=== PATIENT | female | born 1975 | race Caucasian/White ===

== ENCOUNTER → 2023-09-29 17:06 | Outpatient (REF) | payer OTHER, SELFPAY | LOC: PAVMRI 17:06 | PROVIDERS: ATTENDING PHYSICIAN Neurological Surgery; FAMILY PHYSICIAN Student in an Organized Health Care Education/Training Program | DX: Z98.1 Arthrodesis status (principal); M54.50 Low back pain, unspecified | CPT/HCPCS: 72148 ==

== ENCOUNTER 2024-10-27 18:17 | Emergency (ER) | payer OTHER, SELFPAY ==
[2024-10-27 18:30] VITALS: BP 129/92
[2024-10-27 18:56] LABS: Hematocrit 39.3 % (37.0-47.0); Hemoglobin 13.3 g/dL (12.0-16.0); Mean Corp Hgb Conc. 33.8 g/dL (33.0-37.0); Mean Corpuscular Volume 87.3 fL (81.0-99.0); Nucleated Red Blood Cells % 0 %; Platelet Count 298 10^3/uL (130-400); Red Cell Dist. Width 13.1 % (11.5-14.5)
[2024-10-27 19:10] LABS: ALT (SGPT) 16 U/L (0-35); AST (SGOT) 24 U/L (14-36); Albumin 4.7 g/dl (3.5-5.0); Alkaline Phosphatase 43 U/L (38-126); Blood Urea Nitrogen 11 mg/dl (7-17); Calcium 9.9 mg/dl (8.4-10.2); Carbon Dioxide 21 mmol/L (22-30); Chloride 109 mmol/L (98-107); Glucose 101 mg/dl (70-99); Potassium 4.0 mmol/L (3.5-5.1); Sodium 137 mmol/L (135-145); Total Protein 7.0 g/dl (6.3-8.2); eGFR > 60.00
--- NOTE | 2024-10-27 21:10 | ED.GENMED ---
History of Present Illness
<Patricia Rasmussen MD, Resident - Last Filed: 10/29/24 04:25>
General
Chief Complaint: Bowel Problem
Source: patient
Time Seen by Provider: 10/27/24 20:33
Nursing documentation reviewed up to this point in time: agreed with
History of Present Illness
History of Present Illness:
Ms. Paty Cummins is a 49-year-old female with a PMH notable for starting Wegovy on September 20, 2024 who presents with rectal pain/pressure increasing after 8 days of not having a bowel movement and daily nausea for 2 weeks.
She feels the urge to have a bowel movement but cannot and feels that there is something blocking. She trains on the toilet, which is led to sweating. She tried an enema at 4 AM today, which was unsuccessful.
She denies bright red blood per rectum. She denies vomiting. She does not eat anything today. She denies having other side effects after starting Wegovy.
Review of Systems
<Patricia Rasmussen MD, Resident - Last Filed: 10/29/24 04:25>
Review of Systems
All Other Systems: ROS reviewed and negative except as documented in HPI and ROS
Phy Exam
<Patricia Rasmussen MD, Resident - Last Filed: 10/29/24 04:25>
Physical Exam
Physical Exam:
General: Standing up because sitting is uncomfortable, dry mucous membranes
Abdomen:
On rectal exam, hard stool can be barely palpated at the tip of the finger
Discomfort to suprapubic pressure
Tenderness to palpation in the lower abdominal quadrants
Heart: Normal rate and rhythm, no pedal edema
Lungs: Clear to auscultation bilaterally
Course
<Patricia Rasmussen MD, Resident - Last Filed: 10/29/24 04:25>
Orders/Labs/Results
Orders:
Orders
10/27/24 18:43
Obstruct Series W/PA Chest [CR Obstruct Series W/pa Chest] Urgent
Comment:
Reason For Exam: no BM x8 days
10/27/24 18:49
Complete Blood Count/With Diff Urgent
Comprehensive Metabolic Panel Urgent
10/27/24 22:31
Enema- Treatment ONCE
Type: Milk of Molasses
Abnormal Lab Results
10/27/24
18:49
WBC 13.3 H 10^3/uL
(4.8-10.8)
MPV 11.2 H fL
(7.4-10.4)
Abs Immat Gran (auto) 0.1 H 10^3/uL
(0-0.05)
Absolute Neuts (auto) 10.8 H 10^3/uL
(1.4-6.5)
Neutrophils % 81.3 H %
(42.2-75.2)
Lymphocytes % 13.2 L %
(20.5-51.1)
Chloride 109 H mmol/L
(98-107)
Carbon Dioxide 21 L mmol/L
(22-30)
Glucose 101 H mg/dl
(70-99)
10/27/24 18:49
10/27/24 18:49
Vital Signs
Initial and Last Documented VS:
Initial Vital Signs
Pulse Resp BP Pulse Ox
87 18 129/92 98
10/27/24 18:30 10/27/24 18:30 10/27/24 18:30 10/27/24 18:30
Last Documented Vital Signs
Temp Pulse Resp BP Pulse Ox
98.0 F 87 16 114/80 98
10/27/24 23:48 10/27/24 23:48 10/27/24 23:48 10/27/24 23:48 10/27/24 23:48
<Renard Lopez MD - Last Filed: 10/28/24 05:09>
Orders/Labs/Results
Orders:
Orders
10/27/24 18:43
Obstruct Series W/PA Chest [CR Obstruct Series W/pa Chest] Urgent
Comment:
Reason For Exam: no BM x8 days
10/27/24 18:49
Complete Blood Count/With Diff Urgent
Comprehensive Metabolic Panel Urgent
10/27/24 22:31
Enema- Treatment ONCE
Type: Milk of Molasses
Abnormal Lab Results
10/27/24
18:49
WBC 13.3 H 10^3/uL
(4.8-10.8)
MPV 11.2 H fL
(7.4-10.4)
Abs Immat Gran (auto) 0.1 H 10^3/uL
(0-0.05)
Absolute Neuts (auto) 10.8 H 10^3/uL
(1.4-6.5)
Neutrophils % 81.3 H %
(42.2-75.2)
Lymphocytes % 13.2 L %
(20.5-51.1)
Chloride 109 H mmol/L
(98-107)
Carbon Dioxide 21 L mmol/L
(22-30)
Glucose 101 H mg/dl
(70-99)
10/27/24 18:49
10/27/24 18:49
Vital Signs
Initial and Last Documented VS:
Initial Vital Signs
Pulse Resp BP Pulse Ox
87 18 129/92 98
10/27/24 18:30 10/27/24 18:30 10/27/24 18:30 10/27/24 18:30
Last Documented Vital Signs
Temp Pulse Resp BP Pulse Ox
98.0 F 87 16 114/80 98
10/27/24 23:48 10/27/24 23:48 10/27/24 23:48 10/27/24 23:48 10/27/24 23:48
<Patricia Rasmussen MD, Resident - Last Filed: 10/29/24 04:25>
MDM/Problems Addressed
Differential Diagnosis Includes:
Fecal impaction
MDM/Problems Addressed:
Abdominal x-ray suggesting fecal impaction with a large amount of stool in the rectum and proximal colon.
Zofran for nausea
Attempt manual disimpaction. If is unsuccessful, trial water-soluble enema
<Patricia Rasmussen MD, Resident - Last Filed: 10/29/24 04:25>
*Pulse Oximetry
SaO2: 98
Oxygen Mode of Delivery: Room air
Patient hypoxic: no
*Critical Care Note
Total Time (30-74mins, 75-104mins- exclusive of procedures): Not Applicable
ED Attending Note
<Patricia Rasmussen MD, Resident - Last Filed: 10/29/24 04:25>
-
Portions of this chart may have been created with voice recognition software.� Occasional wrong word or��sound alike� substitutions may have occurred due to the inherent limitations of voice recognition software.
<Renard Lopez MD - Last Filed: 10/28/24 05:09>
ED Attending Note
Patient seen and examined by attending physician: Yes
I performed a history and physical exam of patient and discussed management with resident, I reviewed resident's note and agree with documented findings and plan of care.: Yes
ED Attending Note:
I have seen and evaluated the patient with a [id number] encounter. I have spoken to the resident and involved in the medical history, the physical exam, medical decision making.
Evaluation and management service: agree unless noted differently below.
Results interpretation: agree unless noted differently below.
Focused HPI: 49-year-old female with history as noted presents to the ER for evaluation of rectal pressure and constipation. Patient has been on Wegovy for a month and unfortunately has had a lot of nausea. She was prescribed Zofran and has been
taking it for the past week but unfortunately this is caused her to be constipated. The past few days she has had significant rectal pressure/tenesmus and has been straining on the toilet without success and so she finally came to the ER for
assessment. No vomiting or abdominal pain.
Physical exam: Awake alert, appears mildly uncomfortable. Abdomen soft nontender. On rectal examination she has a fecal impaction.
Medical Decision Makin-year-old female presents with rectal pressure and constipation as described above. Basic labs sent off she has a leukocytosis of unclear acute clinical significance. CMP no clinically significant abnormalities.
Abdominal x-ray/obstruction series shows constipation and fecal impaction. Patient was disimpacted by me at bedside. Subsequent enema with good result. Patient feeling much better after these measures. Stable for discharge on MiraLAX.
Discharge Plan
Departure
Patient Disposition: Home (Routine Discharge)
Date of Disposition: 10/27/24
Time of Disposition: 23:44
Patient with high blood pressure during this ER visit?: No
Discharge Problem:
Fecal impaction, Constipation
Instructions: Constipation, Adult (DC), Fecal Impaction (DC)
Prescriptions:
New
polyethylene glycol 3350 [Miralax] 17 gram/dose powder
4 g PO DAILY Qty: 119 0RF
Referrals:
Jennifer Vargas MD [Family Provider, Internal Medicine] - Follow up in 5-7 days
Activity Restrictions/Additional Instructions:
Thank you for visiting the Emergency Department at [facility].
1. Please schedule a follow up appointment as directed. Call first thing tomorrow morning to make an appointment.
2. If indicated, please take your medications as instructed and indicated on discharge paperwork.
3. If any of your symptoms do not improve, or persist, or become more severe within 6-12 hours, please return to the emergency department for further care.
4. Please return to the emergency department if you develop a headache, neck pain/stiffness, fever greater than 100.4F, chest pain, shortness of breath, persistent nausea, vomiting, slurred speech, difficulty walking, numbness/tingling, weakness,
signs of infection or any other symptoms that are worrisome to you.
Please call [phone] if you have any questions.
Interventions
Interventions:
*Risk Screen - Suicide Last Done: 10/27/24 18:30
*General Assessment Last Done: 10/27/24 18:30
*Neglect/Abuse Screening Last Done: 10/27/24 20:30
*ED- Fall Risk Assessment Last Done: 10/27/24 23:55
*ED COVID-19 Vaccine History Last Done: 10/27/24 18:30
*Nursing Disposition Last Done: 10/27/24 23:55
SN-Ztnmwn-Fynxwrywew Assessment Last Done: 10/27/24 20:30
Discharge Date and Time
Discharge Date/Time: 10/27/24 23:55
Print Language: RWANDAN
[2024-10-27 23:48] VITALS: BP 114/80
== END 2024-10-27 23:55 | disposition home or self-care (01) ==
LOC: EMR 18:17
PROVIDERS: Emergency Medicine; EMERGENCY PHYSICIAN Emergency Medicine; FAMILY PHYSICIAN Student in an Organized Health Care Education/Training Program
DX: K56.41 Fecal impaction (principal)
CPT/HCPCS: 99283; 74022; 80053; 85025

== ENCOUNTER 2024-12-31 19:00 | Emergency (ER) | payer OTHER, SELFPAY ==
[2024-12-31 19:01] VITALS: BP 162/92
[2024-12-31 19:37] LABS: Hematocrit 40.0 % (37.0-47.0); Hemoglobin 13.1 g/dL (12.0-16.0); Mean Corp Hgb Conc. 32.8 g/dL (33.0-37.0); Mean Corpuscular Volume 89.3 fL (81.0-99.0); Nucleated Red Blood Cells % 0 %; Platelet Count 310 10^3/uL (130-400); Red Cell Dist. Width 13.1 % (11.5-14.5)
[2024-12-31 19:45] LABS: HCG, Serum Qualitative Screen Negative
[2024-12-31 19:56] LABS: ALT (SGPT) 15 U/L (0-35); AST (SGOT) 19 U/L (14-36); Albumin 4.6 g/dl (3.5-5.0); Alkaline Phosphatase 44 U/L (38-126); Blood Urea Nitrogen 11 mg/dl (7-17); Calcium 10.2 mg/dl (8.4-10.2); Carbon Dioxide 27 mmol/L (22-30); Chloride 103 mmol/L (98-107); Glucose 100 mg/dl (70-99); Potassium 3.6 mmol/L (3.5-5.1); Sodium 136 mmol/L (135-145); Total Protein 7.1 g/dl (6.3-8.2); eGFR > 60.00
[2024-12-31 19:57] LABS: Troponin I < 0.012 ng/ml
[2024-12-31 22:45] VITALS: BP 136/74
[2024-12-31 23:00] VITALS: BP 133/75
[2025-01-01] MEDS: SOLU-CORTEF 200 MG IV
[2025-01-01] MEDS: BENADRYL 50 MG IV
[2025-01-01] MEDS: ATIVAN 1 MG PO (00:44)
--- NOTE | 2025-01-01 02:29 | ED.GENMED ---
History of Present Illness
General
Chief Complaint: Breathing Problem
Source: patient and family
Exam Limitations: none
Time Seen by Provider: 12/31/24 23:28
Nursing documentation reviewed up to this point in time: agreed with
History of Present Illness
History of Present Illness:
Note:
CHIEF COMPLAINT(S)
Difficulty breathing, sensation of something stuck in throat, chest discomfort, and fatigue.
HISTORY OF PRESENT ILLNESS
The patient is a 49-year-old female who presents with complaints of difficulty breathing and a sensation of something being stuck in her throat. These symptoms began approximately three months ago. She describes the chest discomfort as a feeling of
pressure, like someone is sitting on her chest. The patient also reports associated shortness of breath, particularly when climbing stairs, and decreased energy levels. There is no noted fever or reflux symptoms at this time.
She initially contacted her neurosurgeon due to her past medical history of a cervical fusion, worried that it might be related. The neurosurgeon reviewed previous imaging and determined that there were no new issues. The patient was recommended to
see an ENT specialist, who suspected laryngopharyngeal reflux. She was subsequently prescribed omeprazole at a dosage of 40 mg, but reports only partial relief of symptoms.
The patient recalls a previous incident where a CT scan led to an allergic reaction to the contrast dye, resulting in significant facial and neck swelling. This occurred last year and required pre-treatment with antihistamines for future scans. She
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
The patient is concerned that her chest pain and breathing issues might be related to GERD, given the recent findings of swelling around her throat and intermittent nature of her symptoms. She reports that she was scheduled for a swallowing test
later this month to evaluate for esophageal issues.
PAST MEDICAL AND SURGICAL HISTORY
- Cervical spine fusion
- Essential tremors
- History of allergic reaction to IV contrast dye during CT scan (last year)
CHRONIC MEDICAL CONDITIONS SIGNIFICANTLY AFFECTING CARE
- Hypertension
SOCIAL HISTORY
The patient is an commercial maintenance technician managing work stress and has four children.
MEDICATIONS
- Omeprazole 40 mg for GERD
- Primidone for essential tremors
- Hydrochlorothiazide for hypertension
- Gabapentin for back pain
REVIEW OF SYSTEMS
- Respiratory: Complaints of shortness of breath, particularly on exertion.
- Cardiovascular: Reports chest discomfort as pressure.
- Gastrointestinal: Sensation of something stuck in throat, potential acid reflux.
PHYSICAL EXAM
General: Alert, no acute distress.
Skin: Warm, dry.
Head: Normocephalic, atraumatic.
Neck: Supple, trachea midline.
Eye, Ears, Nose, Mouth and Throat: Oral mucosa moist.
Cardiovascular: Normal peripheral perfusion, No edema.
Respiratory: Respirations are non-labored.
Gastrointestinal: Abdomen nondistended
Back: Normal range of motion, Normal alignment.
Musculoskeletal: Normal range of motion, normal strength.
Neurological: Alert and oriented to person, place, time, and situation, No focal neurological deficit observed.
Psychiatric: Cooperative, appropriate mood & affect.
PLAN
- Order a CT scan of the chest with contrast (ensure pre-treatment due to previous allergy to iodine).
- Patient to continue current medication regimen.
- Plan swallow test as scheduled to evaluate for esophageal function or blockages.
- Possible consideration of referring to gastroenterology based on swallow test results.
DIFFERENTIAL DIAGNOSIS
The Differential Diagnosis includes, in no particular order and is not limited to:
1. Gastroesophageal reflux disease (GERD)
2. Laryngopharyngeal reflux
3. Esophageal stricture or motility disorder
4. Cardiovascular cause (e.g., angina)
5. Pulmonary embolism
6. Asthma or other obstructive pulmonary disease
7. Anxiety or stress-related disorder
8. Allergic reaction or airway angioedema
9. Cervical spine-related issue
10. Pill esophagitis
Disposition:
SUMMARY OF ENCOUNTER
The 49-year-old female patient presented to the emergency department experiencing subacute dyspnea. A pulmonary embolism study returned negative. Blood lab work appeared normal. The patient received pre-treatment with steroids due to a known allergy
to contrast dye, which she reported provided some relief.
DISPOSITION
Discharge.
ASSESSMENT
The patient presented with subacute dyspnea. Negative for pulmonary embolism based on study results.
PLAN
The patient will follow up with pulmonology for further evaluation and management of her dyspnea.
MEDICATION RECONCILIATION
Pre-treated with steroids due to known allergic reaction to IV contrast dye.
MEDICAL DECISION MAKING
-Complexity of Data Reviewed: Chronic conditions affecting care include hypertension, history of cervical spine fusion, essential tremors, allergic reaction to IV contrast dye. Differential diagnosis includes GERD, laryngopharyngeal reflux,
esophageal stricture or motility disorder, cardiovascular cause (e.g., angina), pulmonary embolism, asthma or obstructive pulmonary disease, anxiety or stress-related disorder, allergic reaction or airway angioedema, cervical spine-related issue,
pill esophagitis.
-Data:
Category 1
Negative pulmonary embolism study results were reviewed, and lab work was noted as normal.
-Risk:
Prescription medication was administered in the form of steroid pre-treatment for allergy management.
DIAGNOSIS
Dyspnea (R06.00)
Phy Exam
Physical Exam
Physical Exam:
.
Scores
Heart Failure Risk
Heart Failure Risk Score: Not Applicable
Course
Orders/Labs/Results
Orders:
Orders
12/31/24 19:06
EKG [Electrocardiogram (*1)] Urgent
Reason for Study: Shortness of Breath
EKG- Treatment ONCE
12/31/24 19:08
Chest [CR Chest - 2 Views ] Urgent
Comment:
Reason For Exam: SOB
12/31/24 19:09
Test Result ONCE
12/31/24 19:19
Complete Blood Count/With Diff Urgent
Comprehensive Metabolic Panel Urgent
HCG, Serum Qualitative Screen Urgent
Troponin I Urgent
12/31/24 23:51
Diphenhydramine [Benadryl] 50 mg IV NOW STA
Hydrocortisone Sod Succinate [Solu-Cortef] 200 mg IV NOW STA
01/01/25
CT Chest PE Study Urgent
Reason For Exam: dyspnea, cp
01/01/25 00:36
Lorazepam [Ativan] 1 mg PO NOW STA
Abnormal Lab Results
12/31/24
19:19
MCHC 32.8 L g/dL
(33.0-37.0)
MPV 11.1 H fL
(7.4-10.4)
Glucose 100 H mg/dl
(70-99)
12/31/24 19:19
12/31/24 19:19
Vital Signs
Initial and Last Documented VS:
Initial Vital Signs
Temp Pulse Resp BP Pulse Ox
98.3 F 94 20 162/92 100
12/31/24 19:01 12/31/24 19:01 12/31/24 19:01 12/31/24 19:01 12/31/24 19:01
Last Documented Vital Signs
Temp Pulse Resp BP Pulse Ox
98.3 F 71 19 130/72 99
12/31/24 19:01 01/01/25 01:00 01/01/25 01:00 01/01/25 02:53 01/01/25 02:29
*Radiology
Radiology exam reviewed: radiology read reviewed
*Pulse Oximetry
SaO2: 99
Oxygen Mode of Delivery: Room air
Patient hypoxic: no
*Critical Care Note
Total Time (30-74mins, 75-104mins- exclusive of procedures): Not Applicable
Update Note
Update Note:
NAME: KRISTINA LUNDBERG
DATE OF EXAM: 01/01/2025
Patient No: [id number]
Physician: CECI^Pato
Date of : 1975
Past Medical History (entered by Technologist):
Reason For Exam (entered by Technologist):
Other Notes (entered by Technologist): Pt states 'I have been SOB for weeks and it has been getting worse.' Pt also c/o of chest pressure.
Additional Information (per [facility] Radiologist):
CTA CHEST
IMPRESSION:
Good bolus, mild motion artifact. No definite pulmonary embolism.
Heart size is normal. No acute thoracic aortic pathology.
No focal consolidation.
Case finalized on 01/01/25 02:12 EDT
Efrain Goodwin M.D.
This report has been electronically signed and verified by the Radiologist whose name is printed abov
ED Attending Note
-
Portions of this chart may have been created with voice recognition software.� Occasional wrong word or��sound alike� substitutions may have occurred due to the inherent limitations of voice recognition software.
Discharge Plan
Departure
Patient Disposition: Home (Routine Discharge)
Date of Disposition: 01/01/25
Time of Disposition: 02:31
Patient with high blood pressure during this ER visit?: Yes
Condition: Good
Discharge Problem:
Dyspnea
Instructions: Shortness of Breath (Dyspnea) (DC), BLOOD PRESSURE
Prescriptions:
No Action
polyethylene glycol 3350 [Miralax] 17 gram/dose powder
4 g PO DAILY Qty: 119 0RF
Referrals:
Bill Mascorro MD [Active, Pulmonary Medicine]
Jennifer Vargas MD [Family Provider, Internal Medicine]
Activity Restrictions/Additional Instructions:
Thank You for choosing [facility].
It was a pleasure meeting you and taking part in your care. We hope for your continued healing and wellness.
Please read discharge instructions in their entirety. However, they are for general education and may not describe your exact diagnosis at discharge. Information on your ER visit and medical conditions were discussed with you along with appropriate
follow up information...
If indicated, please take your medications as instructed and indicated on discharge paperwork.
Please schedule a follow up appointment as directed. Call to schedule an appointment
Please return to the emergency department with ANY change in, persisting, or worsening of symptoms. If any of your symptoms do not improve, or persist, or become more severe within 6-12 hours, please return to the emergency department for further
care.
Please return to the emergency department if you develop a headache, neck pain/stiffness, fever greater than 100.4F, chest pain, shortness of breath, persistent nausea, vomiting, slurred speech, difficulty walking, numbness/tingling, weakness, signs
of infection or any other symptoms that are worrisome to you.
If you have any questions or concerns please do not hesitate to call the Hospital at or E-mail me directly at [email or web address]
Interventions
Interventions:
*Risk Screen - Suicide Last Done: 12/31/24 19:01
*General Assessment Last Done: 12/31/24 19:01
*Neglect/Abuse Screening Last Done: 12/31/24 19:01
*ED- Fall Risk Assessment Last Done: 01/01/25 02:53
*ED COVID-19 Vaccine History Last Done: 01/01/25 02:53
*Nursing Disposition Last Done: 01/01/25 02:53
ED- Cardiac Assessment Last Done: 12/31/24 22:47
ED- Pulmonary Assessment Last Done: 12/31/24 22:47
Discharge Date and Time
Discharge Date/Time: 01/01/25 02:53
Print Language: ARMENIAN
[2025-01-01 02:53] VITALS: BP 130/72
== END 2025-01-01 02:53 | disposition home or self-care (01) ==
LOC: EMR 19:00
PROVIDERS: Emergency Medicine; EMERGENCY PHYSICIAN Student in an Organized Health Care Education/Training Program; FAMILY PHYSICIAN Student in an Organized Health Care Education/Training Program
DX: R06.00 Dyspnea, unspecified (principal); I10 Essential (primary) hypertension; G25.0 Essential tremor; K21.9 Gastro-esophageal reflux disease without esophagitis; Z56.6 Other physical and mental strain related to work; Z91.041 Radiographic dye allergy status
CPT/HCPCS: 99284; 96374; 96375; 71046; 71275; 80053; 84484; 84703; 85025; 93005; Q9967

== ENCOUNTER 2025-01-01 16:48 | Emergency (ER) | payer OTHER, SELFPAY ==
[2025-01-01 16:59] VITALS: BP 148/82
--- NOTE | 2025-01-01 19:01 | ED.GENMED ---
History of Present Illness
General
Chief Complaint: Allergic Reaction
Time Seen by Provider: 01/01/25 18:46
History of Present Illness
History of Present Illness:
49-year-old female without significant past medical history presenting to the emergency department for swelling to her neck. Patient reports she was in the hospital yesterday, being evaluated for respiratory symptoms. She had a CT of her chest,
however known iodine allergy. She was subsequently prepped with steroids and Benadryl. She reports that when she woke up this morning, she had swelling to her neck and her lymph nodes. Reports similar reaction in the past when she did have iodine
contrast. In the past when she had this reaction, did respond well to steroids. She currently denies any difficulty breathing. Feels some slight discomfort with swallowing, however denies any difficulty swallowing. Denies chest pain, abdominal
pain, vomiting, additional acute medical complaints
Phy Exam
Physical Exam
Physical Exam:
General: Well-appearing, no clinical signs of dehydration, nontoxic and in no acute distress
HEENT: protecting airway, generalized swelling to cervical lymph nodes, slightly tender. No erythema or warmth. Normal phonation of voice. No trismus. No stridor
Neck: appears supple
CV: Normal heart rate, regular rhythm
Resp: No accessory muscle use, no increased work of breathing, lungs clear to auscultation bilaterally
Abd: No distention
Extremities: No deformities, no swelling
Neuro: alert, no focal neurologic deficit
: deferred
Rectal: deferred
Psych: Normal affect
Skin: Intact
Course
Orders/Labs/Results
Orders:
Orders
01/01/25 19:01
Dexamethasone Pf [Decadron] 10 mg PO NOW STA
Vital Signs
Initial and Last Documented VS:
Initial Vital Signs
Temp Pulse Resp BP Pulse Ox
98.1 F 106 16 148/82 100
01/01/25 16:59 01/01/25 16:59 01/01/25 16:59 01/01/25 16:59 01/01/25 16:59
Last Documented Vital Signs
Temp Pulse Resp BP Pulse Ox
98.1 F 106 16 148/82 100
01/01/25 16:59 01/01/25 16:59 01/01/25 16:59 01/01/25 16:59 01/01/25 19:04
MDM/Problems Addressed
MDM/Problems Addressed:
49-year-old female presenting to the emergency department with swelling to her throat after receiving IV contrast. Vital signs are significant for mild tachycardia.
On exam patient is resting comfortably, no acute distress. No airway compromise, currently protecting her airway. No respiratory symptoms, no wheezing or increased work of breathing. Patient does have swelling to her lymph nodes. She notes that
she had a very similar reaction last time she had IV contrast, described as 'iodine mumps '. Suspect similar process. Ultimately feel stable for discharge with outpatient supportive therapy with steroid and Benadryl. Patient notes some discomfort
to her throat, so will administer oral Decadron here patient instructed to start steroids tomorrow. Return precautions discussed and patient verbalized understanding.
*Pulse Oximetry
SaO2: 100
Patient hypoxic: no
*Critical Care Note
Total Time (30-74mins, 75-104mins- exclusive of procedures): Not Applicable
ED Attending Note
-
Portions of this chart may have been created with voice recognition software.� Occasional wrong word or��sound alike� substitutions may have occurred due to the inherent limitations of voice recognition software.
Discharge Plan
Departure
Prescriptions:
No Action
polyethylene glycol 3350 [Miralax] 17 gram/dose powder
4 g PO DAILY Qty: 119 0RF
Referrals:
Jennifer Vargas MD [Family Provider, Internal Medicine]
Interventions
Interventions:
*Risk Screen - Suicide Last Done: 01/01/25 16:59
*General Assessment Last Done: 01/01/25 16:59
*ED- Fall Risk Assessment Last Done: 01/01/25 16:59
*ED COVID-19 Vaccine History Last Done: 01/01/25 16:59
Discharge Date and Time
Print Language: LITHUANIAN
[2025-01-01] MEDS: DECADRON 10 MG PO (19:22)
== END 2025-01-01 19:30 | disposition home or self-care (01) ==
LOC: EMR 16:48
PROVIDERS: EMERGENCY PHYSICIAN Student in an Organized Health Care Education/Training Program; FAMILY PHYSICIAN Student in an Organized Health Care Education/Training Program
DX: R59.0 Localized enlarged lymph nodes (principal); T50.8X5A Adverse effect of diagnostic agents, initial encounter; Z91.041 Radiographic dye allergy status; Z88.8 Allergy status to other drugs, medicaments and biological substances; R00.0 Tachycardia, unspecified
CPT/HCPCS: 99283